=== PATIENT | female | born 1935 | race Caucasian/White ===

== ENCOUNTER 2016-10-13 17:02 | Emergency (ER) | payer OTHER, MEDICAID ==
[~2016-10-13] VITALS: Ht 170.1 cm; Wt 56.7 kg
[~2016-10-13 17:02] MED LIST: ADVAIR 100/501 E1 INH; AUGMENTIN 875 M1 TAB PO; BACTRIM 400 MG-1 TAB PO; BACTRIM DS 8001 TA1 PO; CIPRO500 MG PO; CIPROFLOXACIN500 MG PO; DEXILANT60 MG PO; PRILOSEC20 M2 PO; PROTONIX40 MG PO; PROVENTIL0.09 MG/A1 INH; SINGULAIR10 MG PO; SYMBICORT1 AE1 IH; SYNTHROID0.075 MG PO; ULTRAM50 MG PO; VICODIN 5/500 505 MG PO; ZOFRAN ODT4 MG SL
[2016-10-13] MEDS ORDERED: HYDR12.5C PO (17:33)
[2016-10-13] MEDS ORDERED: PREVACID30 M2 PO (17:33)
[2016-10-13] MEDS ORDERED: ANORO ELLIPTA1 POW IH (17:33)
[2016-10-13] MEDS ORDERED: PROAIR HFA8.5 GM INH (17:34)
[2016-10-13 20:00] VITALS: BP 138/80
== END 2016-10-13 20:19 | disposition short-term general hospital (02) ==
LOC: ED 17:02
DX: S72.001A Fracture of unspecified part of neck of right femur, initial encounter for closed fracture (principal); S42.291A Other displaced fracture of upper end of right humerus, initial encounter for closed fracture; Z79.899 Other long term (current) drug therapy; W18.39XA Other fall on same level, initial encounter; Y93.89 Activity, other specified; Y92.89 Other specified places as the place of occurrence of the external cause; Y99.9 Unspecified external cause status

== ENCOUNTER → 2017-08-13 | Outpatient (CLI) | payer OTHER ==
[~2017-08-13] MED LIST changes: +ANORO ELLIPTA1 POW IH; +HYDR12.5C PO; +PREVACID30 M2 PO; +PROAIR HFA8.5 GM INH
== END | disposition home or self-care (01) ==
LOC: RAD 08-11 10:17
DX: J44.9 Chronic obstructive pulmonary disease, unspecified (principal); J84.10 Pulmonary fibrosis, unspecified

== ENCOUNTER 2017-11-15 22:37 | Inpatient (IN) | payer OTHER, MEDICAID ==
[~2017-11-15] VITALS: Ht 162.5 cm; Wt 51.4 kg
--- NOTE | ~2017-11-15 | EKG ---
[place], [place] ELECTROCARDIOGRAM REPORT NAME: MINH FLORES UNIT #: [id number] ROOM: 425 DOCTOR: ERIC SANTILLAN MD BIRTHDATE: [birth year] DOS: 11/16/2017 DATE OF STUDY: 11/15/2017 TIME: 2309 hours. FINDINGS: 1. Sinus tachycardia at 105 beats per minute. 2. Flattened T waves in most chest leads. 3. An abnormal ECG. 4. No previous tracing is available for comparison. ERIC SANTILLAN MD CM:EKGRPT:ELECTROCARDIOGRAM REPORT [id number] ERIC SANTILLAN MD
--- NOTE | ~2017-11-15 | PR ---
[place], [place] PROGRESS NOTE NAME: MINH FLORES [facility] #: [id number] UNIT #: [id number] ROOM: [place] [address] DOCTOR: ESA FRANKEL MD BIRTHDATE: [birth year] DOS: 11/17/2017 CARDIOLOGY PROGRESS NOTE SUBJECTIVE: The patient was seen at her bedside in the intensive care unit today, 11/17/2017, for followup of an elevated troponin level. She is an 82-year-old woman who presented to [facility] on 11/15/2017 with malaise, fevers and chills along with nausea and vomiting. She denied any chest pain or dyspnea, although her daughter stated that she had complained of shortness of breath earlier in the week. Her urinalysis was positive for bacteria and blood cultures were positive for gram-negative rods. A diagnosis of urinary infection with gram-negative sepsis was made and she was admitted to the intensive care unit for management. Laboratory studies did show elevation of troponin, even though she did not have any chest pain. Her electrocardiogram showed no acute changes. She was monitored in the intensive care unit. She is improving and continues to deny chest pain today. Her troponin levels started at 0.506, but errol to a peak of 1.73 and then it fell to 1.34. PAST MEDICAL HISTORY: Positive for COPD, gastroesophageal reflux disease, hypothyroidism, but she does not have any history of previous heart disease. PHYSICAL EXAMINATION: VITAL SIGNS: Today her pulse is 75 and regular, blood pressure is 128/60. She has a temperature of 100.8. NECK: Supple. She has no jugular distention. Carotids are full. I heard no bruits. LUNGS: Respirations are unlabored. Chest is clear. HEART: Has a regular rhythm. She has a fourth heart sound, but no third heart sound or murmur. The PMI is not displaced. ABDOMEN: Soft and normally active. EXTREMITIES: Showed no edema. DIAGNOSTIC STUDIES: An echocardiogram done on 11/16/2017 showed normal left ventricular size with inferolateral hypokinesis, ejection fraction 55%, stage 1 diastolic relaxation abnormalities, mild aortic stenosis. IMPRESSION: 1. Non-ST elevation myocardial infarction. This is most likely a type 2 myocardial injury related to demand ischemia rather than an acute coronary event. 2. Abnormal echocardiogram, demonstrating wall motion abnormality. It is possible that the patient does have underlying coronary disease. 3. Mild aortic stenosis. PLAN: The patient is hemodynamically stable at this time. I think that she can be transferred out of the intensive care unit, but continued on medical therapy. I think that once her infections have improved, we can evaluate her further with risk stratifying myocardial perfusion stress test. Further recommendations [place], [place] PROGRESS NOTE NAME: MINH FLORES UNIT #: [id number] ROOM: [place] [address] DOCTOR: JOSTIN RIVAS,ESA BIRTHDATE: [birth year] will depend upon the results of her stress test. I thank the hospitalist physicians for asking our advice regarding her care. ESA FRANKEL MD CM:PNTRANS [id number] ESA FRANKEL MD 11/17/17 1534 interface
--- NOTE | ~2017-11-15 | PR ---
[place], [place] PROGRESS NOTE NAME: MINH FLORES [facility] #: [id number] UNIT #: [id number] ROOM: 425 DOCTOR: ESA FRANKEL MD BIRTHDATE: [birth year] DOS: 11/18/2017 SUBJECTIVE: The patient was seen at her bedside today, 11/18/2017, for followup of an elevated troponin level. She presented to [facility] 11/15/2017 with malase, fever and chills along with nausea and vomiting. She was found to have urinary tract infection with gram-negative sepsis. Both the urine and blood are growing E. coli. A followup blood culture after antibiotics were started is sterile thus far. After admission, she also developed pain in her right hip, which is status post repair. She states that she had the surgery done about a year ago. She has had persistent fevers since admission with a temperature as high as 103.4 early this morning. Currently, her temperature is down to 99.7. Sed rate today was elevated at 95. Troponin levels have been elevated. Her initial troponin was 0.506, but errol to a peak of 1.730 and is now down to 1.270. PHYSICAL EXAMINATION: VITAL SIGNS: Today, pulse is 92 and regular, blood pressure 107/83. She is currently febrile with a temperature of 99.7. NECK: Supple. She has no jugular distention. Carotids are full. LUNGS: Respirations are unlabored. CHEST: Clear. HEART: Has a regular rhythm. She has a grade II/ systolic ejection murmur along the left sternal border. There is a fourth heart sound, but no third heart sound. The PMI is not displaced. IMAGING: An echocardiogram done on 11/16/2017 showed normal left ventricular size with inferolateral hypokinesis and ejection fraction of 55%, stage 1 diastolic abnormalities and mild aortic stenosis. She has no Valle spots, splinter hemorrhages or scleral hemorrhages. IMPRESSION: 1. Non-ST elevation myocardial infarction. This is still most likely a type 2 myocardial injury related to demand ischemia rather than an acute coronary event. 2. Abnormal echocardiogram demonstrating wall motion abnormality. It is possible that the patient does have underlying coronary artery disease. 3. Mild aortic stenosis. 4. Gram-negative sepsis with Escherichia coli, most likely of urinary tract origin. PLAN: The patient is being evaluated by Infectious Disease and probably will be evaluated by Orthopedics as well. We will continue to observe her clinically. If there is a question about the presence of endocarditis, we can arrange for a RAN later this week, but for now, antibiotic therapy appears to be the most appropriate management tool. We thank the hospitalist physicians for asking our advice Regarding the patient's care. [place], [place] PROGRESS NOTE NAME: SANDRA,MINH Sarah UNIT #: [id number] ROOM: 425 DOCTOR: ESA FRANKEL MD BIRTHDATE: [birth year] ESA FRANKEL MD CM:PNTRANS [id number] ESA FRANKEL MD 11/18/171914 interface
--- NOTE | ~2017-11-15 | PR ---
[place], [place] PROGRESS NOTE NAME: MINH FLORES [facility] #: [id number] UNIT #: [id number] ROOM: 425 DOCTOR: ESA FRANKEL MD BIRTHDATE: [birth year] DOS: 11/19/2017 SUBJECTIVE: The patient was seen at her bedside today 11/19/2017 for followup of a type 2 myocardial injury. She is an 82-year-old woman who presented to the hospital with Gram-negative sepsis of urinary tract origin. During the hospitalization, she did have an elevation in troponin to a peak of 1.730. This may have been due to a type 2 myocardial injury or underlying coronary disease, but the patient never had any chest pain or diagnostic electrocardiographic changes. Blood cultures were positive for E. coli and have been sterile since then. She did develop significant right hip pain, but this is improving. Sed rate was elevated at 95 on 11/18/2017, white count was elevated as high as 17,200, but is now down to 10,000 with antibiotic therapy. Today, the patient states that she is feeling better. She is sitting beside her bed and ate a reasonable breakfast. She does, however, appear breathless. PHYSICAL EXAMINATION: VITAL SIGNS: Her pulse is 85 and regular, blood pressure is 136/68. She has a fever of 99.1. HEENT: Normocephalic and atraumatic. Extraocular muscles are intact. Sclerae are clear. Pupils are equal, round and react to light. The oral mucosa is moist. Tongue is midline. NECK: Supple. She has no jugular distention. Carotids are full. LUNGS: Respirations are unlabored. Her chest is clear to auscultation and percussion. She has no presacral edema or chest wall tenderness. HEART: Has a regular rhythm. She has a fourth heart sound. She has a grade 2-3/6 systolic ejection murmur along the left sternal border, but no diastolic murmurs. PMI is not displaced. ABDOMEN: Soft and normally active. EXTREMITIES: Showed no edema. LABORATORY DATA: Her initial hemoglobin on admission was 9.1, it is falling gradually during this hospitalization and today is 7.0. White count was as high as 17,200 and is now down to 10,000, platelet count is 351,000. Sodium 137, potassium 3.6, BUN 6, creatinine 0.26. IMPRESSION: 1. Non-ST elevation myocardial infarction, most likely this was a type 2 myocardial injury related to demand ischemia rather than acute coronary event. 2. Abnormal echocardiogram demonstrating a wall motion abnormality. The patient may have underlying coronary process as well. 3. Mild aortic stenosis. 4. Gram-negative sepsis with Escherichia coli, most likely of urinary tract origin. 5. Right hip pain with history of right hip surgery about 1 year ago and hardware in place. Her hemoglobin of 7 is quite low for someone who recently had a cardiac injury. The patient does seem breathless at rest. I would suggest that she be given at least 1 unit of packed cells to get her hemoglobin above 8 and hopefully close [place], [place] PROGRESS NOTE NAME: MINH FLORES UNIT #: [id number] ROOM: [facility] DOCTOR: ESA FRANKEL MD BIRTHDATE: [birth year] to 9. We will continue to monitor her with her other physicians. Once she is fully stabilized, further cardiac assessment with a pharmacologic stress test will be planned. I thank the hospitalist physicians for asking our advice regarding her care. ESA FRANKEL MD CM:PNTRANS [id number] ESA FRANKEL MD 11/19/17 1015 interface
[~2017-11-15 22:37] MED LIST changes: +ANORO ELLIPTA1 EACH INH; -ANORO ELLIPTA1 POW IH
[2017-11-15] MEDS ORDERED: PERCOCET 5-3251 EACH PO (22:40)
[2017-11-15 22:53] VITALS: BP 134/69
[2017-11-15 23:10] LABS: BILIRUBIN NEGATIVE (NEGATIVE); BLOOD TRACE-INTACT (NEGATIVE); CLARITY SL CLOUDY (CLEAR); COLOR YELLOW (YELLOW); GLUCOSE NEGATIVE (NEGATIVE); KETONE NEGATIVE (NEGATIVE); LEUKO ESTERASE 1+ (NEGATIVE); NITRITE POSITIVE (NEGATIVE); UROBILINOGEN 0.2 E.U./dl (0.2-1.0)
[2017-11-15 23:14] LABS: RBC 0-2 rbc/hpf (0-2); WBC TNTC wbc/hpf (0-5)
[2017-11-15 23:15] VITALS: BP 117/75
[2017-11-15 23:15] LABS: BACTERIA 4+
[2017-11-15 23:29] LABS: BASO # 0.1 10*3/uL (0.0-0.1); BASO % 0.5 % (0.0-1.0); EOS # 0.1 10*3/uL (0.0-0.4); EOS % 0.5 % (1.0-4.0); HEMATOCRIT 28.6 % (37.0-47.0); HEMOGLOBIN 9.1 g/dl (12.0-16.0); LYMPH # 0.8 10*3/uL (1.3-4.4); LYMPH % 4.6 % (27.0-41.0); MEAN CELL VOLUME 98.6 fl (81.0-99.0); MEAN CORPUSCULAR HGB 31.4 pg (27.0-31.0); MEAN CORPUSCULAR HGB CONC 31.8 g/dl (33.0-37.0); MEAN PLATELET VOLUME 10.5 fl (9.6-12.3); MONO # 0.7 10*3/uL (0.1-1.0); NEUT # 14.8 10*3/uL (2.3-7.9); NEUT % 89.9 % (47.0-73.0); PLATELET COUNT AUTOMATED 325 10*3/uL (130-400); RED CELL DISTRI WIDTH 12.7 % (0-14.5); WHITE BLOOD COUNT 16.4 10*3/uL (4.8-10.8)
[2017-11-15 23:39] VITALS: BP 138/76
[2017-11-15 23:39] LABS: ACT PARTIAL THROMBO TIME 25.5 SECONDS (20.8-31.5); INTERNATIONAL NORM RATIO 1.2 (2.0-3.5)
[2017-11-15 23:47] LABS: ALBUMIN 2.9 gm/dl (3.1-4.5); ALKALINE PHOSPHATASE 95 U/L (45-117); BUN 14 mg/dl (7-24); CHLORIDE 105 mmol/L (98-107); CKMB 0.9 ng/ml (0.5-3.6); CPK 55 U/L (26-192); CREATININE 0.42 mg/dL (0.55-1.02); LIPASE 87 U/L (73-393); POTASSIUM 3.5 mmol/L (3.5-5.1); SGOT/AST 20 IU/L (3-35); SGPT/ALT 15 U/L (12-78); SODIUM 138 mmol/L (136-145)
[2017-11-15 23:49] LABS: TROPONIN I 0.506 ng/ml (<0.045)
[2017-11-16] VITALS (7 sets, daily range): BP systolic 100–122; BP diastolic 49–67
[2017-11-16] MEDS ORDERED: GOOD NEIGHBOR L10 MG PO (01:43)
[2017-11-16] MEDS ORDERED: MONTELUKAST SOD10 MG PO (01:45)
[2017-11-16 09:41] LABS: HEMATOCRIT 28.7 % (37.0-47.0); HEMOGLOBIN 8.9 g/dl (12.0-16.0); MEAN CELL VOLUME 100.7 fl (81.0-99.0); MEAN CORPUSCULAR HGB 31.2 pg (27.0-31.0); MEAN PLATELET VOLUME 10.7 fl (9.6-12.3); PLATELET COUNT AUTOMATED 322 10*3/uL (130-400); RED BLOOD COUNT 2.85 10*6/uL (4.10-5.10); WHITE BLOOD COUNT 17.2 10*3/uL (4.8-10.8)
[2017-11-16 10:04] LABS: BUN 12 mg/dl (7-24); CHLORIDE 107 mmol/L (98-107); POTASSIUM 3.7 mmol/L (3.5-5.1); SODIUM 138 mmol/L (136-145)
[2017-11-16 10:28] LABS: BASOPHILS 1 % (0-1); PLATELET SUFFICIENCY NORMAL (NORMAL); POLYCHROMASIA SLIGHT; TOTAL CELLS COUNTED 100 #CELLS
[2017-11-17] VITALS (7 sets, daily range): BP systolic 112–149; BP diastolic 52–93
[2017-11-17 05:19] LABS: BASO # 0.1 10*3/uL (0.0-0.1); BASO % 0.7 % (0.0-1.0); EOS # 0.1 10*3/uL (0.0-0.4); EOS % 0.9 % (1.0-4.0); HEMATOCRIT 25.1 % (37.0-47.0); HEMOGLOBIN 7.7 g/dl (12.0-16.0); LYMPH # 1.5 10*3/uL (1.3-4.4); LYMPH % 14.9 % (27.0-41.0); MEAN CELL VOLUME 101.6 fl (81.0-99.0); MEAN CORPUSCULAR HGB 31.2 pg (27.0-31.0); MEAN CORPUSCULAR HGB CONC 30.7 g/dl (33.0-37.0); MEAN PLATELET VOLUME 11.1 fl (9.6-12.3); MONO # 1.3 10*3/uL (0.1-1.0); MONO % 13.1 % (3.0-9.0); NEUT # 7.1 10*3/uL (2.3-7.9); PLATELET COUNT AUTOMATED 316 10*3/uL (130-400); RED BLOOD COUNT 2.47 10*6/uL (4.10-5.10); RED CELL DISTRI WIDTH 13.2 % (0-14.5); WHITE BLOOD COUNT 10.1 10*3/uL (4.8-10.8)
[2017-11-17 06:21] LABS: ALBUMIN 2.3 gm/dl (3.1-4.5); ALKALINE PHOSPHATASE 73 U/L (45-117); BUN 11 mg/dl (7-24); CHLORIDE 110 mmol/L (98-107); CHOLESTEROL 82 mg/dL (<200); CREATININE 0.36 mg/dL (0.55-1.02); FREE T4 1.12 ng/dl (0.76-1.46); HDL CHOLESTEROL 26 mg/dl (40-60); LDL CHOLESTEROL 40 mg/dL (9-159); PHOSPHOROUS 2.1 mg/dL (2.5-4.9); POTASSIUM 3.1 mmol/L (3.5-5.1); SGOT/AST 24 IU/L (3-35); SGPT/ALT 14 U/L (12-78); SODIUM 141 mmol/L (136-145); TOTAL PROTEIN 5.4 gm/dL (6.4-8.2); TRIGLYCERIDES 81 mg/dl (<150); VLDL CHOLESTEROL 16 mg/dL (6-40)
[2017-11-17 06:56] LABS: VITAMIN D, 25-HYDROXY 24.7 ng/mL (30-100)
[2017-11-18] VITALS (7 sets, daily range): BP systolic 107–143; BP diastolic 62–83
[2017-11-18 07:48] LABS: BASO # 0.1 10*3/uL (0.0-0.1); BASO % 0.5 % (0.0-1.0); EOS % 0.3 % (1.0-4.0); HEMATOCRIT 24.5 % (37.0-47.0); HEMOGLOBIN 7.6 g/dl (12.0-16.0); LYMPH # 1.3 10*3/uL (1.3-4.4); LYMPH % 10.5 % (27.0-41.0); MEAN CELL VOLUME 98.8 fl (81.0-99.0); MEAN CORPUSCULAR HGB 30.6 pg (27.0-31.0); MONO # 1.5 10*3/uL (0.1-1.0); MONO % 12.8 % (3.0-9.0); NEUT # 8.9 10*3/uL (2.3-7.9); NEUT % 75.4 % (47.0-73.0); PLATELET COUNT AUTOMATED 323 10*3/uL (130-400); RED BLOOD COUNT 2.48 10*6/uL (4.10-5.10); WHITE BLOOD COUNT 11.9 10*3/uL (4.8-10.8)
[2017-11-18 08:26] LABS: BUN 7 mg/dl (7-24); CHLORIDE 105 mmol/L (98-107); CREATININE 0.35 mg/dL (0.55-1.02); PHOSPHOROUS 2.3 mg/dL (2.5-4.9); POTASSIUM 3.4 mmol/L (3.5-5.1); SODIUM 138 mmol/L (136-145)
[2017-11-19] VITALS (12 sets, daily range): BP systolic 114–144; BP diastolic 60–72
[2017-11-19 06:45] LABS: BASO # 0.1 10*3/uL (0.0-0.1); BASO % 0.5 % (0.0-1.0); EOS # 0.3 10*3/uL (0.0-0.4); EOS % 2.9 % (1.0-4.0); HEMATOCRIT 22.2 % (37.0-47.0); LYMPH # 1.8 10*3/uL (1.3-4.4); LYMPH % 18.5 % (27.0-41.0); MEAN CELL VOLUME 98.2 fl (81.0-99.0); MEAN CORPUSCULAR HGB CONC 31.5 g/dl (33.0-37.0); MEAN PLATELET VOLUME 10.8 fl (9.6-12.3); MONO # 1.3 10*3/uL (0.1-1.0); MONO % 13.1 % (3.0-9.0); NEUT # 6.4 10*3/uL (2.3-7.9); NEUT % 64.5 % (47.0-73.0); PLATELET COUNT AUTOMATED 351 10*3/uL (130-400); RED BLOOD COUNT 2.26 10*6/uL (4.10-5.10)
[2017-11-19 07:05] LABS: BUN 6 mg/dl (7-24); CHLORIDE 103 mmol/L (98-107); CREATININE 0.26 mg/dL (0.55-1.02); PHOSPHOROUS 1.9 mg/dL (2.5-4.9); POTASSIUM 3.6 mmol/L (3.5-5.1); SODIUM 137 mmol/L (136-145)
[2017-11-20] VITALS: BP 136/67
[2017-11-20 06:47] LABS: BASO # 0.1 10*3/uL (0.0-0.1); BASO % 1.2 % (0.0-1.0); EOS # 0.5 10*3/uL (0.0-0.4); EOS % 5.6 % (1.0-4.0); HEMATOCRIT 26.1 % (37.0-47.0); HEMOGLOBIN 8.6 g/dl (12.0-16.0); LYMPH # 2.2 10*3/uL (1.3-4.4); LYMPH % 25.6 % (27.0-41.0); MEAN CORPUSCULAR HGB 31.2 pg (27.0-31.0); MEAN PLATELET VOLUME 10.4 fl (9.6-12.3); MONO % 11.3 % (3.0-9.0); NEUT # 4.8 10*3/uL (2.3-7.9); NEUT % 55.8 % (47.0-73.0); PLATELET COUNT AUTOMATED 362 10*3/uL (130-400); RED BLOOD COUNT 2.76 10*6/uL (4.10-5.10); RED CELL DISTRI WIDTH 14.4 % (0-14.5); WHITE BLOOD COUNT 8.6 10*3/uL (4.8-10.8)
[2017-11-20 06:51] LABS: MEAN CELL VOLUME 94.6 fl (81.0-99.0)
[2017-11-20 07:18] LABS: BUN 5 mg/dl (7-24); CHLORIDE 104 mmol/L (98-107); CREATININE 0.31 mg/dL (0.55-1.02); POTASSIUM 3.4 mmol/L (3.5-5.1); SODIUM 141 mmol/L (136-145)
[2017-11-20 08:00] VITALS: BP 145/61
[2017-11-20] MEDS ORDERED: WALKER (09:26)
[2017-11-20 12:00] VITALS: BP 131/53
[2017-11-20 16:00] VITALS: BP 127/53
[2017-11-20] MEDS ORDERED: KEFLEX 500 MG E2 CAP PO (16:43)
[2017-11-20] MEDS ORDERED: METOPROLOL SUCC25 M2 PO (16:43)
[2017-11-20] MEDS ORDERED: ATORVASTATIN CA40 M1 PO (16:43)
[2017-11-20] MEDS ORDERED: ASPIRIN ADULT L81 M2 PO (16:43)
[2017-11-20] MEDS ORDERED: VITAMIN D-32000 UNIT PO (16:43)
== END 2017-11-20 18:07 | disposition home or self-care (01) | DRG 871 ==
LOC: ED 22:37 → ICCU 11-16 00:33 → 4E 11-16 00:33 → EDHOLD 11-16 00:33 → 5E 11-16 00:48 → ICCU 11-16 13:46 → 4E 11-17 16:37
PROVIDERS: Emergency Medicine; Family Medicine; Internal Medicine; Internal Medicine Cardiovascular Disease; Internal Medicine Hospice and Palliative Medicine
PROC: 30233N1 Transfusion of Nonautologous Red Blood Cells into Peripheral Vein, Percutaneous Approach (ICD-10-PCS; principal; 2017-11-19)
DX: A41.50 Gram-negative sepsis, unspecified (principal); I21.4 Non-ST elevation (NSTEMI) myocardial infarction; J18.1 Lobar pneumonia, unspecified organism; E44.0 Moderate protein-calorie malnutrition; D64.9 Anemia, unspecified; J44.0 Chronic obstructive pulmonary disease with (acute) lower respiratory infection; Z68.1 Body mass index [BMI] 19.9 or less, adult; N12 Tubulo-interstitial nephritis, not specified as acute or chronic; A41.51 Sepsis due to Escherichia coli [E. coli]; R65.20 Severe sepsis without septic shock; R31.9 Hematuria, unspecified; D72.810 Lymphocytopenia; K21.9 Gastro-esophageal reflux disease without esophagitis; E03.9 Hypothyroidism, unspecified; H91.91 Unspecified hearing loss, right ear; I35.0 Nonrheumatic aortic (valve) stenosis; R26.81 Unsteadiness on feet; Z79.899 Other long term (current) drug therapy; Z87.81 Personal history of (healed) traumatic fracture; Z82.49 Family history of ischemic heart disease and other diseases of the circulatory system; Z84.89 Family history of other specified conditions; Z98.42 Cataract extraction status, left eye; Z98.41 Cataract extraction status, right eye; Z90.49 Acquired absence of other specified parts of digestive tract

== ENCOUNTER → 2017-12-12 | Outpatient (CLI) | payer OTHER, MEDICAID ==
[~2017-12-12] MED LIST changes: +ASPIRIN ADULT L81 M2 PO; +ATORVASTATIN CA40 M1 PO; +GOOD NEIGHBOR L10 MG PO; +KEFLEX 500 MG E2 CAP PO; +METOPROLOL SUCC25 M2 PO; +MONTELUKAST SOD10 MG PO; +PERCOCET 5-3251 EACH PO; +VITAMIN D-32000 UNIT PO; +WALKER
--- NOTE | ~2017-12-12 | ST ---
[place], [place] EXERCISE STRESS TEST REPORT NAME: MINH FLORES UNIT #: [id number] ROOM: DOCTOR: KHANH PIPER MD BIRTHDATE: [birth year] DOS: 12/12/2017 LEXISCAN STRESS EKG REPORT REFERRING PHYSICIAN: Dr. Jacinto. INDICATION: Left bundle branch block. The patient underwent standard protocol Lexiscan stress EKG. Interestingly, patient's EKG is normal sinus rhythm with no evidence of left bundle branch block today, with the baseline heart rate of 77 beats per minute, blood pressure of 122/72. The patient's peak heart was 117 with a blood pressure 130/80. The patient had no chest pain, no EKG changes, no arrhythmias. SUMMARY OF FINDINGS: Unremarkable Lexiscan stress EKG. Please see separate report for perfusion scan imaging results. KHANH PIPER MD CM:STRESS:EXERCISE STRESS TEST REPORT [id number] KHANH PIPER MD
== END | disposition home or self-care (01) ==
LOC: CARD 02:11
DX: I44.7 Left bundle-branch block, unspecified (principal); R94.31 Abnormal electrocardiogram [ECG] [EKG]; R53.81 Other malaise

== ENCOUNTER → 2017-12-25 | Outpatient (CLI) | payer OTHER | END | disposition home or self-care (01) | LOC: RAD 11:10 | DX: J44.9 Chronic obstructive pulmonary disease, unspecified (principal); M54.9 Dorsalgia, unspecified ==

== ENCOUNTER 2018-11-11 17:49 | Inpatient (IN) | payer OTHER, MEDICAID ==
[~2018-11-11] VITALS: Ht 162.5 cm; Wt 40.2 kg
--- NOTE | ~2018-11-11 | EKG ---
[place], [place] ELECTROCARDIOGRAM REPORT NAME: MINH FLORES UNIT #: [id number] ROOM: 406 DOCTOR: DEVAN DRAFT REPORT BIRTHDATE: [birth year] [facility] Test Date: 2018-11-12 Test Time: 00:16:48 Pat Name: MINH FLORES Department: Room: [facility] Gender: F Manager Benefit: SS RESP : 1935 Requested By: STEPHANIE PARK Order Number: [id number] Reading MD: Kareem Whitmore MD Measurements Intervals [place] Rate: 103 P: 80 FL: 174 QRS: 29 QRSD: 92 T: 35 QT: 364 QTc: 477 Interpretive Statements Sinus tachycardia Atrial premature complexes Probable LVH with secondary repol abnrm Baseline wander in lead(s) V3,V4,V5 Electronically Signed On 11-14-2018 8:10:06 PDT by Kareem Whitmore MD CM:EKGRPT:ELECTROCARDIOGRAM REPORT [id number] STEPHANIE HARTMAN DRAFT REPORT STEPHANIE PARK MD
--- NOTE | ~2018-11-11 | EKG ---
[place], [place] ELECTROCARDIOGRAM REPORT NAME: MINH FLORES UNIT #: [id number] ROOM: 406 DOCTOR: DEVAN DRAFT REPORT BIRTHDATE: [birth year] [facility] Test Date: 2018-11-11 Test Time: 18:37:19 Pat Name: MINH FLORES Department: Room: 406 Gender: F Harbor Boat Pilot: Zabrina King : 1935 Requested By: STEPHANIE PARK Order Number: [id number] Reading MD: Kareem Whitmore MD Measurements Intervals [place] Rate: 95 P: 53 VA: 150 QRS: 3 QRSD: 94 T: -1 QT: 423 QTc: 532 Interpretive Statements Sinus rhythm Atrial premature complexes LVH with secondary repolarization abnormality Prolonged QT interval No previous ECG available for comparison Electronically Signed On 11-14-2018 8:09:49 PDT by Kareem Whitmore MD CM:EKGRPT:ELECTROCARDIOGRAM REPORT [id number] STEPHANIE HARTMAN DRAFT REPORT STEPHANIE PARK MD
--- NOTE | ~2018-11-11 | EKG ---
[place], [place] ELECTROCARDIOGRAM REPORT NAME: MINH FLORES UNIT #: [id number] ROOM: 406 DOCTOR: DEVAN DRAFT REPORT BIRTHDATE: [birth year] [facility] Test Date: 2018-11-11 Test Time: 21:07:29 Pat Name: MINH FLORES Department: Room: 406 Gender: F Factory Representative: Zabrina King : 1935 Requested By: STEPHANIE PARK Order Number: [id number] Reading MD: Kareem Whitmore MD Measurements Intervals [place] Rate: 87 P: 78 SD: 145 QRS: 19 QRSD: 102 T: -16 QT: 377 QTc: 454 Interpretive Statements Sinus rhythm Multiple premature complexes, vent \T\ supraven Probable left atrial enlargement LVH with secondary repolarization abnormality No previous ECG available for comparison Electronically Signed On 11-14-2018 8:09:57 PDT by Kareem Whitmore MD CM:EKGRPT:ELECTROCARDIOGRAM REPORT [id number] [phone] STEPHANIE HARTMAN DRAFT REPORT STEPHANIE PARK MD
[2018-11-11 17:50] VITALS: BP 130/100
[2018-11-11 18:30] VITALS: BP 132/96
[2018-11-11 18:30] LABS: HEMATOCRIT 31.7 % (37.0-47.0); HEMOGLOBIN 10.3 g/dl (12.0-16.0); MEAN CELL VOLUME 99.4 fl (81.0-99.0); MEAN CORPUSCULAR HGB 32.3 pg (27.0-31.0); MEAN CORPUSCULAR HGB CONC 32.5 g/dl (33.0-37.0); MEAN PLATELET VOLUME 10.9 fl (9.6-12.3); PLATELET COUNT AUTOMATED 276 10*3/uL (130-400); RED BLOOD COUNT 3.19 10*6/uL (4.10-5.10); RED CELL DISTRI WIDTH 13.5 % (0-14.5)
[2018-11-11 18:47] LABS: ALBUMIN 3.7 gm/dl (3.1-4.5); ALKALINE PHOSPHATASE 112 U/L (45-117); BUN 17 mg/dl (7-24); CHLORIDE 102 mmol/L (98-107); SGOT/AST 31 IU/L (3-35); SGPT/ALT 45 U/L (12-78); SODIUM 135 mmol/L (136-145); TOTAL PROTEIN 7.4 gm/dL (6.4-8.2)
[2018-11-11 18:48] LABS: TROPONIN I < 0.015 ng/ml (<0.045)
[2018-11-11 18:52] LABS: TOTAL CELLS COUNTED 100 #CELLS
[2018-11-11 18:53] LABS: OVALOCYTES FEW; PLATELET SUFFICIENCY NORMAL (NORMAL)
[2018-11-11 19:03] VITALS: BP 133/97
[2018-11-11 19:22] LABS: INTERNATIONAL NORM RATIO 1.1 (2.0-3.5)
[2018-11-11 20:10] VITALS: BP 152/85
--- NOTE | 2018-11-11 20:10 | NUR ---
A 83, admitted to , under the services of DEIDRE Das DO with a diagnosis of COPD. Chief complaint is BACK PAIN. Patient arrived via ambulatory from ER. Monitor applied. Initial assessment completed. Vital signs taken and recorded. DEIDRE DAS DO notified of admission to the unit. Orders received. See assessment for past medical history, medications and allergies. Patient and/or family oriented to unit. [facility]. Clothing/patient valuable form completed. KEMAR BARNES
[2018-11-12] VITALS: BP 120/56
[2018-11-12 03:43] LABS: HEMATOCRIT 31.2 % (37.0-47.0); MEAN CELL VOLUME 98.7 fl (81.0-99.0); MEAN CORPUSCULAR HGB 31.6 pg (27.0-31.0); MEAN CORPUSCULAR HGB CONC 32.1 g/dl (33.0-37.0); MEAN PLATELET VOLUME 11.2 fl (9.6-12.3); PLATELET COUNT AUTOMATED 278 10*3/uL (130-400); RED BLOOD COUNT 3.16 10*6/uL (4.10-5.10); RED CELL DISTRI WIDTH 13.5 % (0-14.5); WHITE BLOOD COUNT 16.6 10*3/uL (4.8-10.8)
[2018-11-12 04:05] LABS: PLATELET SUFFICIENCY NORMAL (NORMAL); TOTAL CELLS COUNTED 100 #CELLS
[2018-11-12 04:14] LABS: ALBUMIN 3.3 gm/dl (3.1-4.5); ALKALINE PHOSPHATASE 102 U/L (45-117); BUN 14 mg/dl (7-24); CHLORIDE 103 mmol/L (98-107); CHOLESTEROL 97 mg/dL (<200); CREATININE 0.43 mg/dL (0.55-1.02); HDL CHOLESTEROL 65 mg/dl (40-60); LDL CHOLESTEROL 26 mg/dL (9-159); PHOSPHOROUS 3.1 mg/dL (2.5-4.9); POTASSIUM 3.9 mmol/L (3.5-5.1); SGOT/AST 26 IU/L (3-35); SGPT/ALT 40 U/L (12-78); SODIUM 136 mmol/L (136-145); TOTAL PROTEIN 7.1 gm/dL (6.4-8.2); TRIGLYCERIDES 31 mg/dl (<150); VLDL CHOLESTEROL 6 mg/dL (6-40)
[2018-11-12 04:19] LABS: THYROID STIM HORMONE (HS) 0.322 uIU/ml (0.358-4.75)
[2018-11-12 06:46] LABS: VITAMIN D, 25-HYDROXY 24.7 ng/mL (30-100)
--- NOTE | 2018-11-12 07:39 | NUR ---
Shift chart check completed.
[2018-11-12 08:00] VITALS: BP 106/42
--- NOTE | 2018-11-12 09:00 | NUR ---
Lead Oracle Developer in to talk to patient. Patient states lives at home with . There are few steps in the home. Physician: javier sheikh [facility]acy[facility] Home health services: none Patient's level of ADLs: INDEPENDENT Patient has working utilities: all working DME: walker Follow-up physician's appointment after d/c: will be made by hospitalist nurse director upon discharge Does patient want to access PORTAL?: no Discharge plan discussed with patient, patient lives at home with , she is independent in adls and ambulation, patient uses a walker at home, she states she will be going home when able, discussed with her VNA and she declines any services at this time case management will follow. ORLIN RASMUSSEN
[2018-11-12 11:13] LABS: BILIRUBIN NEGATIVE (NEGATIVE); BLOOD TRACE-INTACT (NEGATIVE); CLARITY SL CLOUDY (CLEAR); COLOR YELLOW (YELLOW); GLUCOSE NEGATIVE (NEGATIVE); KETONE NEGATIVE (NEGATIVE); LEUKO ESTERASE NEGATIVE (NEGATIVE); NITRITE NEGATIVE (NEGATIVE)
[2018-11-12 11:34] LABS: BACTERIA 1+; MUCOUS 2+
[2018-11-12 12:00] VITALS: BP 130/81
[2018-11-12 16:00] VITALS: BP 116/76
--- NOTE | 2018-11-12 16:31 | NUR ---
PHYSICAL THERAPY Nursing screen received. Chart review complete. Recommend normal daily mobility with nursing prn. If difficulties with mobilty arise, please order PT when medically appropriate. Thank you. Cathy Griffith,PT
[2018-11-12 20:00] VITALS: BP 126/84
[2018-11-13] VITALS: BP 125/78
[2018-11-13 04:58] LABS: BASO % 0.1 % (0.0-1.0); HEMATOCRIT 31.7 % (37.0-47.0); HEMOGLOBIN 9.9 g/dl (12.0-16.0); LYMPH # 0.9 10*3/uL (1.3-4.4); LYMPH % 8.1 % (27.0-41.0); MEAN CELL VOLUME 99.1 fl (81.0-99.0); MEAN CORPUSCULAR HGB 30.9 pg (27.0-31.0); MEAN CORPUSCULAR HGB CONC 31.2 g/dl (33.0-37.0); MONO # 0.4 10*3/uL (0.1-1.0); MONO % 3.4 % (3.0-9.0); NEUT # 10.2 10*3/uL (2.3-7.9); PLATELET COUNT AUTOMATED 283 10*3/uL (130-400); RED CELL DISTRI WIDTH 13.6 % (0-14.5); WHITE BLOOD COUNT 11.6 10*3/uL (4.8-10.8)
[2018-11-13 05:11] LABS: BUN 19 mg/dl (7-24); CHLORIDE 104 mmol/L (98-107); CREATININE 0.55 mg/dL (0.55-1.02); POTASSIUM 4.2 mmol/L (3.5-5.1); SODIUM 138 mmol/L (136-145)
[2018-11-13 08:00] VITALS: BP 109/80
--- NOTE | 2018-11-13 08:27 | NUR ---
SITTING UP IN BED. RESP-EASY AND REGULAR. C/O CONSTIPATION. MEDICATED WITH DUCOLAX PO PER PRN ORDER, SEE EMAR. CALL LIGHT IN REACH. DENIES ANY PAIN. SEE SHIFT ASSESSMENT.
--- NOTE | 2018-11-13 09:00 | NUR ---
case management visits with patient, patient denies any home needs, case management will follow
--- NOTE | 2018-11-13 10:00 | NUR ---
TOLERATED ROUTIEN MED WITH NO PROBLEM. NO C/O AT THIS TIME. CALL LIGHT IN REACH.
[2018-11-13] MEDS ORDERED: VITAMIN D31000 UNI1 PO (11:28)
[2018-11-13] MEDS ORDERED: VIBRAMYCIN100 MG PO (11:28)
[2018-11-13] MEDS ORDERED: PREDNISONE10 MG PO (11:28)
[2018-11-13 12:00] VITALS: BP 130/63
--- NOTE | 2018-11-13 13:10 | NUR ---
Discharge instructions reviewed with patient/family. Patient receptive and verbalizes understanding. Follow-up care arranged. Written instructions given to patient/family. HEPLOCK REMOVED 2X2 APPLIED. PT ESCORTED VIA WHEELCHAIR FOR DISCHARGE. JESS DWYER
--- NOTE | 2018-11-13 13:12 | NUR ---
Nursing screen received and chart review completed. Patient to be discharged today. Ana Schaeffer OTR/L
== END 2018-11-13 13:10 | disposition home or self-care (01) | DRG 871 ==
LOC: ED 17:49 → 4E 19:02 → EDHOLD 19:02 → 4E 19:28
PROVIDERS: Emergency Medicine; Internal Medicine; ADMIT Internal Medicine
DX: A41.9 Sepsis, unspecified organism (principal); J96.00 Acute respiratory failure, unspecified whether with hypoxia or hypercapnia; J18.9 Pneumonia, unspecified organism; E87.1 Hypo-osmolality and hyponatremia; J44.1 Chronic obstructive pulmonary disease with (acute) exacerbation; J44.0 Chronic obstructive pulmonary disease with (acute) lower respiratory infection; I24.9 Acute ischemic heart disease, unspecified; Z68.1 Body mass index [BMI] 19.9 or less, adult; E03.9 Hypothyroidism, unspecified; R63.6 Underweight; D53.9 Nutritional anemia, unspecified; R07.89 Other chest pain; K21.9 Gastro-esophageal reflux disease without esophagitis; Z87.440 Personal history of urinary (tract) infections; I25.2 Old myocardial infarction; Z90.49 Acquired absence of other specified parts of digestive tract; Z98.42 Cataract extraction status, left eye; Z98.41 Cataract extraction status, right eye; Z82.49 Family history of ischemic heart disease and other diseases of the circulatory system; Z83.1 Family history of other infectious and parasitic diseases; Z79.82 Long term (current) use of aspirin; Z79.899 Other long term (current) drug therapy

== ENCOUNTER 2019-08-31 11:38 | Emergency (ER) | payer OTHER, MEDICAID ==
[~2019-08-31] VITALS: Ht 165.1 cm; Wt 36.3 kg
[~2019-08-31 11:38] MED LIST changes: +PREDNISONE10 MG PO; +VIBRAMYCIN100 MG PO; +VITAMIN D31000 UNI1 PO
[2019-08-31 11:42] VITALS: BP 158/75
[2019-08-31 12:28] LABS: BASO # 0.1 10*3/uL (0.0-0.1); BASO % 1.4 % (0.0-1.0); EOS # 0.2 10*3/uL (0.0-0.4); EOS % 2.3 % (1.0-4.0); HEMATOCRIT 36.5 % (37.0-47.0); HEMOGLOBIN 11.2 g/dl (12.0-16.0); LYMPH # 1.9 10*3/uL (1.3-4.4); LYMPH % 28.4 % (27.0-41.0); MEAN CELL VOLUME 100.3 fl (81.0-99.0); MEAN CORPUSCULAR HGB 30.8 pg (27.0-31.0); MEAN CORPUSCULAR HGB CONC 30.7 g/dl (33.0-37.0); MEAN PLATELET VOLUME 11.3 fl (9.6-12.3); MONO # 0.8 10*3/uL (0.1-1.0); MONO % 12.1 % (3.0-9.0); NEUT # 3.7 10*3/uL (2.3-7.9); NEUT % 55.3 % (47.0-73.0); PLATELET COUNT AUTOMATED 274 10*3/uL (130-400); RED BLOOD COUNT 3.64 10*6/uL (4.10-5.10); RED CELL DISTRI WIDTH 13.9 % (0-14.5); WHITE BLOOD COUNT 6.6 10*3/uL (4.8-10.8)
[2019-08-31 12:38] LABS: BILIRUBIN NEGATIVE (NEGATIVE); CLARITY SL CLOUDY (CLEAR); COLOR YELLOW (YELLOW); GLUCOSE NEGATIVE (NEGATIVE); KETONE NEGATIVE (NEGATIVE); SPECIFIC GRAVITY 1.015 (1.005-1.030)
[2019-08-31 12:39] LABS: BLOOD TRACE-INTACT (NEGATIVE); LEUKO ESTERASE 1+ (NEGATIVE); NITRITE NEGATIVE (NEGATIVE); PH 6.5 (5.0-9.0); UROBILINOGEN 0.2 E.U./dl (0.2-1.0)
[2019-08-31 12:47] LABS: ALBUMIN 3.8 gm/dl (3.1-4.5); ALKALINE PHOSPHATASE 125 U/L (45-117); BUN 15 mg/dl (7-24); CHLORIDE 104 mmol/L (98-107); CREATININE 0.54 mg/dL (0.55-1.02); POTASSIUM 4.2 mmol/L (3.5-5.1); SGOT/AST 28 IU/L (3-35); SGPT/ALT 32 U/L (12-78); SODIUM 138 mmol/L (136-145); TOTAL PROTEIN 7.7 gm/dL (6.4-8.2)
[2019-08-31 12:52] LABS: BACTERIA 4+; WBC 51-100 wbc/hpf (0-5)
[2019-08-31] MEDS ORDERED: NORCO 5-325 TA1 EACH PO (14:11)
[2019-08-31] MEDS ORDERED: AMINOPHYLLIN200 MG PO (14:11)
== END 2019-08-31 14:33 | disposition home or self-care (01) ==
LOC: ED 11:38
PROVIDERS: Physician Assistant
DX: M54.5 Low back pain (principal); N39.0 Urinary tract infection, site not specified; J44.9 Chronic obstructive pulmonary disease, unspecified; K21.9 Gastro-esophageal reflux disease without esophagitis; E07.9 Disorder of thyroid, unspecified; Z79.899 Other long term (current) drug therapy; Z79.82 Long term (current) use of aspirin; Z79.2 Long term (current) use of antibiotics; Z90.49 Acquired absence of other specified parts of digestive tract

== ENCOUNTER 2019-10-08 09:43 | Inpatient (IN) | payer OTHER, MEDICAID ==
[~2019-10-08] VITALS: Ht 165.1 cm; Wt 35.4 kg
[~2019-10-08 09:43] MED LIST changes: +AMINOPHYLLIN200 MG PO; +NORCO 5-325 TA1 EACH PO
[2019-10-08 09:53] VITALS: BP 131/93
[2019-10-08 10:21] LABS: BASO # 0.1 10*3/uL (0.0-0.1); BASO % 1.4 % (0.0-1.0); EOS # 0.2 10*3/uL (0.0-0.4); EOS % 2.3 % (1.0-4.0); HEMOGLOBIN 11.6 g/dl (12.0-16.0); LYMPH # 2.1 10*3/uL (1.3-4.4); LYMPH % 28.1 % (27.0-41.0); MEAN CELL VOLUME 99.2 fl (81.0-99.0); MEAN CORPUSCULAR HGB 30.3 pg (27.0-31.0); MEAN CORPUSCULAR HGB CONC 30.5 g/dl (33.0-37.0); MEAN PLATELET VOLUME 11.2 fl (9.6-12.3); MONO # 0.9 10*3/uL (0.1-1.0); MONO % 12.6 % (3.0-9.0); NEUT # 4.1 10*3/uL (2.3-7.9); NEUT % 55.3 % (47.0-73.0); PLATELET COUNT AUTOMATED 415 10*3/uL (130-400); RED BLOOD COUNT 3.83 10*6/uL (4.10-5.10); RED CELL DISTRI WIDTH 12.8 % (0-14.5); WHITE BLOOD COUNT 7.4 10*3/uL (4.8-10.8)
[2019-10-08 10:30] VITALS: BP 151/92
[2019-10-08 10:32] LABS: INTERNATIONAL NORM RATIO 1.2 (2.0-3.5)
[2019-10-08 10:57] LABS: ALBUMIN 3.3 gm/dl (3.1-4.5); ALKALINE PHOSPHATASE 130 U/L (45-117); BUN 15 mg/dl (7-24); CHLORIDE 101 mmol/L (98-107); CREATININE 0.57 mg/dL (0.55-1.02); POTASSIUM 3.5 mmol/L (3.5-5.1); SGOT/AST 21 IU/L (3-35); SGPT/ALT 22 U/L (12-78); SODIUM 136 mmol/L (136-145); TOTAL PROTEIN 7.7 gm/dL (6.4-8.2)
[2019-10-08 11:01] LABS: TROPONIN I < 0.015 ng/ml (<0.045)
[2019-10-08 12:00] VITALS: BP 148/56
[2019-10-08 12:07] VITALS: BP 140/56
--- NOTE | 2019-10-08 13:54 | NUR ---
DAUGHTER (LORHuU CELL PHONE NUMBER
--- NOTE | 2019-10-08 16:41 | NUR ---
called and spoke with pt daughter Roopa, gave pt admission room as per pt request
--- NOTE | 2019-10-08 16:57 | NUR ---
PATIENT TAKEN UPSTAIRS BY MERCEDES TORRES AT THIS TIME. PATIENT REPORT GIVEN TO JONY TORRES.
[2019-10-08] MEDS ORDERED: ANORO ELLIPTA1 EACH INH (17:10)
[2019-10-08 17:12] VITALS: BP 115/74
[2019-10-08 20:00] VITALS: BP 146/77
--- NOTE | 2019-10-08 20:18 | NUR ---
C/O BACK PAIN RATED "8" NORCO GIVEN FOR PAIN PER ORDER.
[2019-10-09] VITALS: BP 131/67
--- NOTE | 2019-10-09 01:18 | NUR ---
24 HR chart check completed.
[2019-10-09 06:36] LABS: BASO % 0.3 % (0.0-1.0); HEMATOCRIT 31.8 % (37.0-47.0); HEMOGLOBIN 9.8 g/dl (12.0-16.0); LYMPH # 0.8 10*3/uL (1.3-4.4); MEAN CELL VOLUME 96.4 fl (81.0-99.0); MEAN CORPUSCULAR HGB 29.7 pg (27.0-31.0); MEAN CORPUSCULAR HGB CONC 30.8 g/dl (33.0-37.0); MEAN PLATELET VOLUME 11.5 fl (9.6-12.3); MONO # 0.3 10*3/uL (0.1-1.0); MONO % 7.7 % (3.0-9.0); NEUT # 2.4 10*3/uL (2.3-7.9); NEUT % 68.7 % (47.0-73.0); PLATELET COUNT AUTOMATED 335 10*3/uL (130-400); RED CELL DISTRI WIDTH 12.6 % (0-14.5); WHITE BLOOD COUNT 3.5 10*3/uL (4.8-10.8)
[2019-10-09 07:02] LABS: CHLORIDE 104 mmol/L (98-107); CHOLESTEROL 97 mg/dL (<200); CREATININE 0.49 mg/dL (0.55-1.02); PHOSPHOROUS 3.5 mg/dL (2.5-4.9); POTASSIUM 3.8 mmol/L (3.5-5.1); SODIUM 137 mmol/L (136-145)
[2019-10-09 07:17] LABS: BUN 14 mg/dl (7-24); FREE T4 1.15 ng/dl (0.76-1.46); HDL CHOLESTEROL 50 mg/dl (40-60); LDL CHOLESTEROL 40 mg/dL (9-159); THYROID STIM HORMONE (HS) 0.403 uIU/ml (0.358-4.75); TRIGLYCERIDES 35 mg/dl (<150); VLDL CHOLESTEROL 7 mg/dL (6-40)
[2019-10-09 08:00] VITALS: BP 132/62
[2019-10-09 08:41] LABS: VITAMIN D, 25-HYDROXY 28.4 ng/mL (30-100)
--- NOTE | 2019-10-09 09:00 | NUR ---
Thermometer Production Worker in to talk to patient. Patient states lives at home with and daughter. There are no steps in the home. Physician: javier sheikh [facility] Home health services: none Patient's level of ADLs: INDEPENDENT Patient has working utilities: all working DME: walker Follow-up physician's appointment after d/c: will be made by hospitalist nurse director upon discharge Does patient want to access PORTAL?: no Discharge plan discussed with patient, she states she lives at home with and daughter, she is independent in ambulation with her walker, she is independent in adls, she states she will return home when medically stable discussed with her VNA and educated her on the services they provide, she declined any home services at this time. ORLIN RASMUSSEN
--- NOTE | 2019-10-09 10:05 | NUR ---
PHYSICAL THERAPY Physical Therapy evaluation completed on 4E with full evaluation to follow. Low complexity PT evaluation per chart review/ evaluation [id number]. Recommend physical therapy per plan of care and Home Health PT services upon discharge. Thank you for this referral. Danelle Gordon,PT,DPT
--- NOTE | 2019-10-09 10:05 | NUR ---
Occupational Therapy evaluation completed on four with full evaluation to follow. Recommend occupational therapy per plan of care and home with HH SN, OT, and PT upon discharge. Thank you for this referral. Sharon Wiseman OTR/L
[2019-10-09 12:00] VITALS: BP 145/80
--- NOTE | 2019-10-09 12:57 | NUR ---
pt was assessed for home oxygen. pt did not qualify pt at rest spo2 95% ra, hr 97, rr 18, b/p 133/62 pt ambulated 94-100% ra pt at rest spo2 94% ra, hr 102, rr 20,
--- NOTE | 2019-10-09 13:08 | NUR ---
PHYSICAL THERAPY Patient was resting supine in bed this pm when approached for therapy visit and reports just returning from a long walk with Respiratory Therapist. Patient stated she was comfortable in bed and wanted to take a nap, requesting for this Therapist to return tomorrow morning. Will continue per POC with all therapy goals as able. Collin Bryant, CLINICAL CYTOGENETICS DIRECTOR
[2019-10-09] MEDS ORDERED: LEVAQUIN500 M2 PO (15:36)
[2019-10-09] MEDS ORDERED: PREDNISONE10 MG PO (15:36)
--- NOTE | 2019-10-09 15:59 | NUR ---
Discharge instructions reviewed with patient. Patient receptive and verbalizes understanding. Follow-up care arranged. Written instructions given to patient. IV REMOVED, PT HAS NO QUESTIONS ON DISCHARGE. PATIENTS DAUGHTER AWARE OF DISCHARGE AND WILL CALL ONCE SHE HAS ARRIVED TO PICK PATIENT UP. KATHY BUSH
--- NOTE | 2019-10-09 17:05 | NUR ---
PT DISCHARGE VIA WHEELCHAIR
--- NOTE | 2019-10-10 07:51 | NUR ---
PHYSICAL THERAPY CO-SIGN I approve of the Physical Therapy notes written above. Larisa Villanueva PT
== END 2019-10-09 17:48 | disposition home or self-care (01) | DRG 871 ==
LOC: ED 09:43 → 4E 15:09 → EDHOLD 15:09 → 5E 16:04 → 4E 16:22
PROVIDERS: Emergency Medicine; Registered Nurse; ADMIT Family Medicine
DX: A41.9 Sepsis, unspecified organism (principal); J18.9 Pneumonia, unspecified organism; J44.1 Chronic obstructive pulmonary disease with (acute) exacerbation; E44.0 Moderate protein-calorie malnutrition; Z68.1 Body mass index [BMI] 19.9 or less, adult; I08.3 Combined rheumatic disorders of mitral, aortic and tricuspid valves; E03.9 Hypothyroidism, unspecified; K21.9 Gastro-esophageal reflux disease without esophagitis; G89.29 Other chronic pain; I25.2 Old myocardial infarction; Z79.899 Other long term (current) drug therapy; Z90.49 Acquired absence of other specified parts of digestive tract; Z98.42 Cataract extraction status, left eye; Z98.41 Cataract extraction status, right eye; Z82.49 Family history of ischemic heart disease and other diseases of the circulatory system; Z83.6 Family history of other diseases of the respiratory system; Z79.82 Long term (current) use of aspirin

== ENCOUNTER 2019-12-05 11:32 | Emergency (ER) | payer OTHER, MEDICAID ==
[~2019-12-05] VITALS: Ht 157.4 cm; Wt 40.8 kg
[~2019-12-05 11:32] MED LIST changes: +LEVAQUIN500 M2 PO
[2019-12-05 11:42] VITALS: BP 161/83
[2019-12-05 11:54] LABS: BASO # 0.1 10*3/uL (0.0-0.1); EOS # 0.1 10*3/uL (0.0-0.4); HEMATOCRIT 32.3 % (37.0-47.0); LYMPH # 1.8 10*3/uL (1.3-4.4); LYMPH % 18.7 % (27.0-41.0); MEAN CELL VOLUME 93.1 fl (81.0-99.0); MEAN CORPUSCULAR HGB 28.8 pg (27.0-31.0); MEAN PLATELET VOLUME 10.5 fl (9.6-12.3); MONO % 10.2 % (3.0-9.0); NEUT # 6.6 10*3/uL (2.3-7.9); NEUT % 68.8 % (47.0-73.0); PLATELET COUNT AUTOMATED 474 10*3/uL (130-400); RED BLOOD COUNT 3.47 10*6/uL (4.10-5.10); RED CELL DISTRI WIDTH 13.2 % (0-14.5); WHITE BLOOD COUNT 9.6 10*3/uL (4.8-10.8)
[2019-12-05 12:06] LABS: BUN 8 mg/dl (7-24); CHLORIDE 100 mmol/L (98-107); CREATININE 0.51 mg/dL (0.55-1.02); POTASSIUM 3.4 mmol/L (3.5-5.1); SODIUM 136 mmol/L (136-145)
[2019-12-05 12:11] LABS: ACT PARTIAL THROMBO TIME 27.4 SECONDS (20.0-32.1); INTERNATIONAL NORM RATIO 1.1 (2.0-3.5)
== END 2019-12-05 14:26 | disposition short-term general hospital (02) ==
LOC: ED 11:32
PROVIDERS: Emergency Medicine
DX: S72.002A Fracture of unspecified part of neck of left femur, initial encounter for closed fracture (principal); J44.9 Chronic obstructive pulmonary disease, unspecified; E03.9 Hypothyroidism, unspecified; K21.9 Gastro-esophageal reflux disease without esophagitis; Z79.899 Other long term (current) drug therapy; Z79.2 Long term (current) use of antibiotics; W19.XXXA Unspecified fall, initial encounter; Y93.89 Activity, other specified; Y92.89 Other specified places as the place of occurrence of the external cause; Y99.8 Other external cause status

== ENCOUNTER → 2020-01-23 | Outpatient (CLI) | payer OTHER, MEDICAID | END | disposition home or self-care (01) | LOC: RAD 11:03 | DX: M25.552 Pain in left hip (principal); R06.02 Shortness of breath; R07.81 Pleurodynia; Z47.1 Aftercare following joint replacement surgery; Z96.642 Presence of left artificial hip joint ==

== ENCOUNTER 2020-04-30 14:50 | Inpatient (IN) | payer OTHER, MEDICAID ==
[~2020-04-30] VITALS: Ht 165.1 cm; Wt 31.0 kg
[2020-04-30 14:55] VITALS: BP 151/65
--- NOTE | 2020-04-30 15:09 | NUR ---
PATIENTS DAUGHTER CONTACTED THE ED. THE PATIENT DID GIVE THE STAFF PERMISSION TO INFORM HER DAUGHTER OF HER CURRENT VISIT. HER DAUGHTERS NAME IS EVER AND # IS [phone]
--- NOTE | 2020-04-30 15:30 | NUR ---
PATIENT IS RESTING AT THIS TIME. NS INFUSING. CALL LIGHT IN REACH.
[2020-04-30 15:52] LABS: BASO # 0.1 10*3/uL (0.0-0.1); BASO % 0.5 % (0.0-1.0); EOS % 0.1 % (1.0-4.0); HEMATOCRIT 32.1 % (37.0-47.0); LYMPH # 0.6 10*3/uL (1.3-4.4); LYMPH % 4.6 % (27.0-41.0); MEAN CELL VOLUME 86.5 fl (81.0-99.0); MEAN CORPUSCULAR HGB CONC 31.2 g/dl (33.0-37.0); MEAN PLATELET VOLUME 10.8 fl (9.6-12.3); MONO # 1.4 10*3/uL (0.1-1.0); NEUT # 11.8 10*3/uL (2.3-7.9); NEUT % 84.4 % (47.0-73.0); PLATELET COUNT AUTOMATED 297 10*3/uL (130-400); RED BLOOD COUNT 3.71 10*6/uL (4.10-5.10); RED CELL DISTRI WIDTH 16.8 % (0-14.5)
[2020-04-30 15:53] LABS: BILIRUBIN Negative (Negative); BLOOD Negative (Negative); CLARITY Cloudy (Clear); COLOR Yellow (Yellow); GLUCOSE Negative (Negative); KETONE Negative (Negative); LEUKO ESTERASE 3+ (Negative); NITRITE Positive (Negative)
[2020-04-30 16:00] LABS: PH 8.5 (4.5-8.0)
--- NOTE | 2020-04-30 16:01 | NUR ---
PT RESTING. NO COMPLAINTS AT THIS TIME. RESP EASY AND NON LABORED. CALL LIGHT IN REACH.
[2020-04-30 16:15] LABS: BACTERIA 3+; WBC 16-20 wbc/hpf (0-5)
[2020-04-30 16:16] LABS: ALBUMIN 3.1 gm/dl (3.1-4.5); ALKALINE PHOSPHATASE 77 U/L (45-117); BUN 8 mg/dl (7-24); CHLORIDE 99 mmol/L (98-107); CREATININE 0.49 mg/dL (0.55-1.02); POTASSIUM 3.5 mmol/L (3.5-5.1); SGOT/AST 16 IU/L (3-35); SGPT/ALT 11 U/L (12-78); SODIUM 135 mmol/L (136-145); TOTAL PROTEIN 7.1 gm/dL (6.4-8.2)
[2020-04-30 16:21] LABS: INTERNATIONAL NORM RATIO 1.2 (2.0-3.5)
[2020-04-30 16:23] LABS: TROPONIN I < 0.015 ng/ml (<0.045)
--- NOTE | 2020-04-30 16:45 | NUR ---
PT RESTING WITH EYES CLOSED. RESP EASY AND NON LABORED. CALL LIGHT IN REACH.
[2020-04-30 16:52] VITALS: BP 138/68
--- NOTE | 2020-04-30 17:15 | NUR ---
CALL LIGHT IN REACH. FAMILY CONTACTED AND INFORMED OF THE PATIENT AND HER CONDITION/VISIT. RESTING IN POSITION OF COMFORT.
--- NOTE | 2020-04-30 18:10 | NUR ---
NURSE TO NURSE REPORT GIVEN TO ANGELES TORRES. CARE TRANSFERRED.
[2020-04-30 18:15] VITALS: BP 121/61
[2020-04-30 18:30] VITALS: BP 124/68
[2020-04-30] MEDS ORDERED: FEOSOL325 MG PO (19:29)
[2020-04-30] MEDS ORDERED: VITAMIN D3100 MCG PO (19:29)
[2020-04-30] MEDS ORDERED: MIRTAZAPINE7.5 MG PO (19:31)
[2020-04-30 20:00] VITALS: BP 144/64
--- NOTE | 2020-04-30 21:00 | NUR ---
MED NOTIFIED THAT PT IS REFUSING TO DRINK REDICAT FOR CT, OK TO HAVE WITHOUT ORAL CONTRAST CT NOTIFIED
[2020-05-01] VITALS: BP 145/76
--- NOTE | 2020-05-01 00:10 | NUR ---
PT ASSISTED ON BEDPAN AND REMOVED. PT VOIDED WITH NO PROBLEM. NO C/O AT THIS TIME. PT HAS NONPROD COUGH AT THIS TIME. CALL LIGHT IN REACH. SEE SHIFT ASSESSMENT.
--- NOTE | 2020-05-01 04:00 | NUR ---
PT SLEEPING IN BED. RESP-EASY AND REGULAR. OXYGEN IN USE. CALL LIGHT IN REACH.
--- NOTE | 2020-05-01 06:25 | NUR ---
PT ASSISTED TO BATHROOM WITH WALKER AND RETURNED TO BED WTIH NO PROBLEM. NO C/O AT THIS TIME. TOLERATED ROUTINE MED WITH NO PROBLEM. CALL LIGHT IN REACH.
[2020-05-01 06:52] LABS: BASO # 0.1 10*3/uL (0.0-0.1); BASO % 0.5 % (0.0-1.0); EOS # 0.1 10*3/uL (0.0-0.4); EOS % 0.4 % (1.0-4.0); HEMATOCRIT 29.6 % (37.0-47.0); LYMPH # 1.6 10*3/uL (1.3-4.4); LYMPH % 10.1 % (27.0-41.0); MEAN CELL VOLUME 87.6 fl (81.0-99.0); MEAN CORPUSCULAR HGB 26.9 pg (27.0-31.0); MEAN CORPUSCULAR HGB CONC 30.7 g/dl (33.0-37.0); MEAN PLATELET VOLUME 10.6 fl (9.6-12.3); MONO # 1.1 10*3/uL (0.1-1.0); MONO % 7.3 % (3.0-9.0); NEUT # 12.5 10*3/uL (2.3-7.9); NEUT % 81.3 % (47.0-73.0); PLATELET COUNT AUTOMATED 256 10*3/uL (130-400); RED BLOOD COUNT 3.38 10*6/uL (4.10-5.10); RED CELL DISTRI WIDTH 17.1 % (0-14.5); WHITE BLOOD COUNT 15.4 10*3/uL (4.8-10.8)
--- NOTE | 2020-05-01 07:00 | NUR ---
ARRIVED ON SHIFT, REPORT RECEIVED FROM OFFGOING NURSE, ASSUMED CARE OF PATIENT.
[2020-05-01 07:02] LABS: ACT PARTIAL THROMBO TIME 34.2 SECONDS (20.0-32.1); INTERNATIONAL NORM RATIO 1.3 (2.0-3.5)
[2020-05-01 07:19] LABS: ALBUMIN 2.7 gm/dl (3.1-4.5); ALKALINE PHOSPHATASE 69 U/L (45-117); BUN 7 mg/dl (7-24); CHLORIDE 104 mmol/L (98-107); CREATININE 0.27 mg/dL (0.55-1.02); POTASSIUM 3.4 mmol/L (3.5-5.1); SGOT/AST 11 IU/L (3-35); SGPT/ALT 11 U/L (12-78); SODIUM 136 mmol/L (136-145); TOTAL PROTEIN 6.4 gm/dL (6.4-8.2)
--- NOTE | 2020-05-01 07:50 | NUR ---
INTRDUCED SELF TO PATIENT, BED IN LOW POSITION, WHEEL LOCKS ENGAGED, SIDE RAILS UP X 2 FOR FOR TURNING AND REPOSITIONING, CALL LIGHT WITHIN REACH, NO NEEDS VOICED AT THIS TIME.
[2020-05-01 08:00] VITALS: BP 105/54
--- NOTE | 2020-05-01 09:14 | NUR ---
Print Decorator in to talk to patient. Patient states lives at home with family. There are no steps in the home. Physician: javier sheikh [facility] Home health services: none Patient's level of ADLs: assistance Patient has working utilities: all working DME: walker Follow-up physician's appointment after d/c: will be made by hospitalist nurse director upon discharge Does patient want to access PORTAL?: no Discharge plan patient lives at home with family, she uses a walker for ambulation and requires minimal assist with adls. discharge plan is for patient to return home with family. case management will follow for any other needs. ORLIN RASMUSSEN
--- NOTE | 2020-05-01 11:15 | NUR ---
CALL PLACED TO DR. SANTANA OFFICE, SPOKE WITH JOI AT ANSWERING SERVICE, ADVISED OF CONSULT.
--- NOTE | 2020-05-01 11:23 | NUR ---
CALL PLACED TO DR. NICOLE ADVISED OF CONSULT, ORDER RECEIVED FOR ABG.
[2020-05-01 12:00] VITALS: BP 119/69
[2020-05-01 12:06] LABS: ABG BASE EXCESS -0.7 mmol/L (-2.0-2.0); ARTERIAL BLOOD GAS PH 7.52 (7.35-7.45)
[2020-05-01 16:00] VITALS: BP 119/76
[2020-05-01 20:00] VITALS: BP 122/52
--- NOTE | 2020-05-01 21:27 | NUR ---
24 HR CHART CHECK COMPLETE.
[2020-05-02] VITALS: BP 153/60
--- NOTE | 2020-05-02 07:00 | NUR ---
ARRIVED ON SHIFT, REPORT RECEIVED FROM OFFGOING NURSE, ASSUMED CARE OF PATIENT.
[2020-05-02 08:00] VITALS: BP 112/68
--- NOTE | 2020-05-02 08:45 | NUR ---
NOTIFIED THAT PATIENTS COVID TEST RSULT NEGATIVE, CALL PLACED TO DR. AZIZ. ADAMS TO REMOPVE PATIENT OUT OF ISOLATION.
[2020-05-02 12:00] VITALS: BP 146/83
[2020-05-02 16:00] VITALS: BP 145/83
--- NOTE | 2020-05-02 16:41 | NUR ---
PT REQUESTED AND WAS MEDICATED WITH ZOFRAN IV FOR C/O NAUSEA. CALL LIGHT IN REACH. WILL MONITOR
--- NOTE | 2020-05-02 16:47 | NUR ---
PT REQUESTED AND WAS MEDICATED WITH NORCO FOR C/O GENERALIZED PAIN.
--- NOTE | 2020-05-02 17:35 | NUR ---
MEDICATIONS EFFECTIVE PER PT.
[2020-05-02 20:00] VITALS: BP 148/64
[2020-05-03] VITALS: BP 160/68
--- NOTE | 2020-05-03 00:26 | NUR ---
PT MEDICATED WITH PRN NORCO FOR C/O BACK PAIN RATED AN 8/10. WILL MONITOR FOR EFFECTIVENESS.
--- NOTE | 2020-05-03 01:00 | NUR ---
PT ASLEEP IN BED AT THIS TIME. NO S/S OF DISTRESS NOTED. PRN NORCO EFFECTIVE. WILL CONTINUE TO MONITOR.
[2020-05-03 06:31] LABS: BASO # 0.1 10*3/uL (0.0-0.1); EOS # 0.2 10*3/uL (0.0-0.4); EOS % 2.8 % (1.0-4.0); HEMATOCRIT 30.9 % (37.0-47.0); LYMPH % 28.7 % (27.0-41.0); MEAN CORPUSCULAR HGB 27.7 pg (27.0-31.0); MEAN CORPUSCULAR HGB CONC 31.1 g/dl (33.0-37.0); MEAN PLATELET VOLUME 10.9 fl (9.6-12.3); MONO # 0.9 10*3/uL (0.1-1.0); MONO % 13.8 % (3.0-9.0); NEUT # 3.6 10*3/uL (2.3-7.9); NEUT % 53.4 % (47.0-73.0); PLATELET COUNT AUTOMATED 297 10*3/uL (130-400); RED BLOOD COUNT 3.47 10*6/uL (4.10-5.10); RED CELL DISTRI WIDTH 17.2 % (0-14.5); WHITE BLOOD COUNT 6.8 10*3/uL (4.8-10.8)
[2020-05-03 06:46] LABS: ALBUMIN 2.6 gm/dl (3.1-4.5); ALKALINE PHOSPHATASE 63 U/L (45-117); BUN 6 mg/dl (7-24); CHLORIDE 107 mmol/L (98-107); POTASSIUM 3.8 mmol/L (3.5-5.1); SGOT/AST 13 IU/L (3-35); SGPT/ALT 11 U/L (12-78); SODIUM 139 mmol/L (136-145); TOTAL PROTEIN 6.4 gm/dL (6.4-8.2)
--- NOTE | 2020-05-03 07:51 | NUR ---
PHYSICAL THERAPY Screen and PT eval received will follow thank you Larisa Villanueva PT
[2020-05-03 08:00] VITALS: BP 150/78
--- NOTE | 2020-05-03 08:50 | NUR ---
PHYSICAL THERAPY Physical Therapy evaluation completed on 4th floor with full evaluation to follow. Recommend physical therapy per plan of care and home w family and home health services upon discharge. Thank you for this referral. Valeriano Vergara SPT Larisa Villanueva PT
--- NOTE | 2020-05-03 09:00 | NUR ---
case management visits with patient, again discussed with a short term detention with 5 days of rehab and 24 hour care prior to returning home. she declined stated she will have her and daughter at home with her. discussed with her needing iv antibiotics for 7 more days and if anyone at home would be able to do them. she stated her daughter could do them. also discussed VNA and she stated she has used [facility] in the past and would like their services again. case management will send referral to [facility] for when patient is medically stable for discharge
--- NOTE | 2020-05-03 09:00 | NUR ---
Occupational Therapy evaluation completed on 4 with full eval to follow. Precautions include severe BURNS PAIUTE, fall risk,ww use,muscle weakness, low complexity level 68465. Recommend OT per pOC and home with family support and home health SN, OT,PT. Patient in agreement with this plan. Thank you for this referral. Ana Schaeffer OTR/L
[2020-05-03 12:00] VITALS: BP 136/74
--- NOTE | 2020-05-03 13:00 | NUR ---
case management received a call from patient's daughter Nkechi Cisneros. she asked for a review of patient's discharge plans. educated her that patient will be discharged to home on 7 more days of iv antibiotics and patient chose to return home and have her daughter do this. also educated daughter patient chose [facility] to follow. daughter asked that patient not be discharged until daughter talked with rest of family regarding home antibiotics, Nkechi stated she did not know if it would be possibly for family to administer these antibiotcs. case management will await a return call from daughter
--- NOTE | 2020-05-03 14:15 | NUR ---
Patient assessed for home O2. At rest on 2 l/m Spo2 100% HR 84, after 20 minutes on room air at rest Spo2 94%. Patient ambulated in the room with assistance from PT Spo2 remained >90%, HR increased to 120. Patient did complain of dyspnea but recovered quickly upon sitting down. patient left on room air. RN notified patient did not qualify and patient was left on room air.
--- NOTE | 2020-05-03 15:12 | NUR ---
SPEECH PATHOLOGY Nursing screen completed. Patient admitted with pneumonitis, sepsis, COPD exacerbation. This dept. will be available for consult if needed. SUNNY BETANCUR MSCCC-COMMISSARY OFFICER
--- NOTE | 2020-05-03 15:52 | NUR ---
HR UP TO 120'S WITH ACTIVITY, NO C/O CHEST PAIN, FREQUENT PVC'S NOTED. HR CURRENTLY SINUS TACHY RHYTHM/PAC'S RATE 100'S WITH REST. SLIGHT DYSPNEA REMAINING AFTER ACTIVITY.
[2020-05-03 16:00] VITALS: BP 149/67
--- NOTE | 2020-05-03 17:34 | NUR ---
PATIENT OBTAINING MIDLINE FROM OR NURSE AT BEDSIDE.
--- NOTE | 2020-05-03 17:59 | NUR ---
OR NURSE IN ROOM STILL ATTEMPTING MIDLINE INSERTION.
--- NOTE | 2020-05-03 18:11 | NUR ---
OR NURSE SUCCESSFULLY PLACED MIDLINE TO RIGHT ARM.
--- NOTE | 2020-05-03 18:16 | NUR ---
MEDICATED WITH PRN IV ZOFRAN FOR NAUSEA ASSOCIATED WITH MIDLINE PLACEMENT.
--- NOTE | 2020-05-03 19:17 | NUR ---
PRN IV ZOFRAN EFFECTIVE, PER PATIENT.
[2020-05-03 20:00] VITALS: BP 155/82
[2020-05-04] VITALS: BP 171/96
--- NOTE | 2020-05-04 00:06 | NUR ---
PT MEDICATED WITH PRN NORCO FOR C/O BACK PAIN RATED A 6/10. WILL MONITOR FOR EFFECTIVENESS.
--- NOTE | 2020-05-04 01:00 | NUR ---
PT ASLEEP AT THIS TIME. NO S/S OF DISTRESS NOTED. PRN NORCO APPEARS EFFECTIVE.
[2020-05-04] MEDS ORDERED: ERTAPENEM1 GM IV (07:22)
[2020-05-04 08:00] VITALS: BP 156/79
--- NOTE | 2020-05-04 09:00 | NUR ---
case management attempted to visit with patient, she was sleeping. contacted patient's daughter Roopa who lives with patient and her . discussed with her patient needing iv antibiotics for 10 days and if she would be able to learn how to administer them or would she like patient to go to a short term long-term for rehab and iv antibiotics. Roopa stated she would like patient to return home and she would be able to administer the iv antibiotics. she stated she had administered them to her mom once before and she also has a daughter who is a nurse who can help. educated her that OV was set up and would visit her tomorrow. also educated her [facility] an [employer] is checking on the cost of the medication. educated Roopa case management will contact her when all of treatment is set up
--- NOTE | 2020-05-04 09:30 | NUR ---
case management contacte [facility] and spoke to [place], patient's information and script for iv antibiotic faxed to [facility]. she will check patient's benefits and contact case management if patient has any co pay for medication
--- NOTE | 2020-05-04 11:00 | NUR ---
PHYSICAL THERAPY Patient was resting comfortably supine in bed when approached for therapy this morning by OT life enrichment assistant and myself. Patient stated she is going home this afternoon per her discussion with Physician and declined all treatment this date. Patient remained in bed and no services provided at this time. Collin Bryant, VALUE ANALYST
[2020-05-04 12:00] VITALS: BP 150/88
--- NOTE | 2020-05-04 13:06 | NUR ---
case management received a call from Gely at [employer]. patient will have no more that $3.60 copay for her home iv antibiotics. [facility] [employer] will deliver the iv antibiotics today for start of care tomorrow.
[2020-05-04] MEDS ORDERED: NORCO 5-325 TA1 EACH PO (13:42)
--- NOTE | 2020-05-04 15:26 | NUR ---
Discharge instructions reviewed with patient/family. Patient receptive and verbalizes understanding. Follow-up care arranged. Written instructions given to patient/family. CASSIA CABAN
--- NOTE | 2020-05-05 07:37 | NUR ---
PHYSICAL THERAPY CO-SIGN I approve of the Physical Therapy notes written above. Larisa Villanueva PT
== END 2020-05-04 16:48 | disposition home or self-care (01) | DRG 871 ==
LOC: ED 14:50 → EDHOLD 17:15 → 4E 17:15
PROVIDERS: Internal Medicine Critical Care Medicine; Physician Assistant; Podiatrist; Student in an Organized Health Care Education/Training Program; ADMIT Emergency Medicine; ATTEND Emergency Medicine
PROC: 05HD33Z Insertion of Infusion Device into Right Cephalic Vein, Percutaneous Approach (ICD-10-PCS; principal; 2020-05-03)
DX: A41.9 Sepsis, unspecified organism (principal); J18.9 Pneumonia, unspecified organism; J44.1 Chronic obstructive pulmonary disease with (acute) exacerbation; N39.0 Urinary tract infection, site not specified; E87.1 Hypo-osmolality and hyponatremia; Z68.1 Body mass index [BMI] 19.9 or less, adult; I50.32 Chronic diastolic (congestive) heart failure; K21.9 Gastro-esophageal reflux disease without esophagitis; R63.6 Underweight; R26.81 Unsteadiness on feet; E03.9 Hypothyroidism, unspecified; D64.9 Anemia, unspecified; Z20.828 Contact with and (suspected) exposure to other viral communicable diseases; B96.89 Other specified bacterial agents as the cause of diseases classified elsewhere; I35.0 Nonrheumatic aortic (valve) stenosis; E87.6 Hypokalemia; I11.0 Hypertensive heart disease with heart failure; Z88.5 Allergy status to narcotic agent; Z98.41 Cataract extraction status, right eye; Z98.42 Cataract extraction status, left eye; Z90.49 Acquired absence of other specified parts of digestive tract; Z90.10 Acquired absence of unspecified breast and nipple; Z82.49 Family history of ischemic heart disease and other diseases of the circulatory system; Z84.89 Family history of other specified conditions; Z83.6 Family history of other diseases of the respiratory system; I25.2 Old myocardial infarction; Z87.440 Personal history of urinary (tract) infections; Z79.82 Long term (current) use of aspirin; Z79.899 Other long term (current) drug therapy

== ENCOUNTER 2020-05-18 11:12 | Emergency (ER) | payer OTHER, MEDICAID ==
[~2020-05-18] VITALS: Ht 165.1 cm; Wt 35.4 kg
[~2020-05-18 11:12] MED LIST changes: +ERTAPENEM1 GM IV; +FEOSOL325 MG PO; +MIRTAZAPINE7.5 MG PO; +VITAMIN D3100 MCG PO
[2020-05-18 11:13] VITALS: BP 160/85
[2020-05-18 11:45] LABS: BASO # 0.1 10*3/uL (0.0-0.1); BASO % 0.9 % (0.0-1.0); EOS # 0.1 10*3/uL (0.0-0.4); EOS % 0.7 % (1.0-4.0); HEMATOCRIT 33.4 % (37.0-47.0); LYMPH # 1.5 10*3/uL (1.3-4.4); LYMPH % 15.5 % (27.0-41.0); MEAN CELL VOLUME 90.8 fl (81.0-99.0); MEAN CORPUSCULAR HGB 27.7 pg (27.0-31.0); MEAN CORPUSCULAR HGB CONC 30.5 g/dl (33.0-37.0); MONO # 1.4 10*3/uL (0.1-1.0); MONO % 13.6 % (3.0-9.0); NEUT # 6.8 10*3/uL (2.3-7.9); NEUT % 69.1 % (47.0-73.0); PLATELET COUNT AUTOMATED 312 10*3/uL (130-400); RED BLOOD COUNT 3.68 10*6/uL (4.10-5.10); RED CELL DISTRI WIDTH 15.8 % (0-14.5); WHITE BLOOD COUNT 9.9 10*3/uL (4.8-10.8)
[2020-05-18 11:45] LABS: BILIRUBIN Negative (Negative); BLOOD Negative (Negative); CLARITY Cloudy (Clear); COLOR Yellow (Yellow); GLUCOSE Negative (Negative); KETONE Negative (Negative); LEUKO ESTERASE Negative (Negative); NITRITE Negative (Negative); PH 7.5 (4.5-8.0); SPECIFIC GRAVITY 1.015 (1.001-1.030)
[2020-05-18 11:54] LABS: INTERNATIONAL NORM RATIO 1.2 (2.0-3.5)
[2020-05-18 12:02] LABS: ALKALINE PHOSPHATASE 95 U/L (45-117); BUN 9 mg/dl (7-24); CHLORIDE 100 mmol/L (98-107); CREATININE 0.48 mg/dL (0.55-1.02); POTASSIUM 3.5 mmol/L (3.5-5.1); SGOT/AST 13 IU/L (3-35); SGPT/ALT 14 U/L (12-78); SODIUM 137 mmol/L (136-145); TOTAL PROTEIN 7.4 gm/dL (6.4-8.2)
[2020-05-18 12:23] LABS: BACTERIA 1+
== END 2020-05-18 13:07 | disposition home or self-care (01) ==
LOC: ED 11:12
PROVIDERS: Nurse Practitioner Family
DX: R51.9 Headache, unspecified (principal); R41.0 Disorientation, unspecified; K21.9 Gastro-esophageal reflux disease without esophagitis; J44.9 Chronic obstructive pulmonary disease, unspecified; E07.9 Disorder of thyroid, unspecified; Z88.5 Allergy status to narcotic agent; Z79.82 Long term (current) use of aspirin; Z79.899 Other long term (current) drug therapy; Z90.49 Acquired absence of other specified parts of digestive tract; W19.XXXA Unspecified fall, initial encounter; Y93.89 Activity, other specified; Y92.128 Other place in nursing home as the place of occurrence of the external cause; Y99.8 Other external cause status

== ENCOUNTER → 2021-03-21 | Outpatient (CLI) | payer OTHER, MEDICAID | END | disposition home or self-care (01) | LOC: RAD 14:03 | PROVIDERS: ATTEND Nurse Practitioner Primary Care | DX: R06.02 Shortness of breath (principal); I70.0 Atherosclerosis of aorta; M85.80 Other specified disorders of bone density and structure, unspecified site ==

== ENCOUNTER 2021-07-03 23:58 | Emergency (ER) | payer OTHER, MEDICAID ==
[2021-07-04 00:50] LABS: BASO # 0.1 10*3/uL (0.0-0.1); BASO % 0.9 % (0.0-1.0); EOS # 0.1 10*3/uL (0.0-0.4); EOS % 0.9 % (1.0-4.0); HEMATOCRIT 34.9 % (37.0-47.0); LYMPH # 1.2 10*3/uL (1.3-4.4); LYMPH % 9.1 % (27.0-41.0); MEAN CELL VOLUME 93.6 fl (81.0-99.0); MEAN CORPUSCULAR HGB 30.3 pg (27.0-31.0); MEAN CORPUSCULAR HGB CONC 32.4 g/dl (33.0-37.0); MEAN PLATELET VOLUME 11.1 fl (9.6-12.3); MONO % 7.6 % (3.0-9.0); NEUT # 10.4 10*3/uL (2.3-7.9); NEUT % 81.2 % (47.0-73.0); PLATELET COUNT AUTOMATED 305 10*3/uL (130-400); RED BLOOD COUNT 3.73 10*6/uL (4.10-5.10); RED CELL DISTRI WIDTH 13.2 % (0-14.5); WHITE BLOOD COUNT 12.8 10*3/uL (4.8-10.8)
[2021-07-04 01:08] LABS: ALBUMIN 2.7 gm/dl (3.1-4.5); ALKALINE PHOSPHATASE 80 U/L (45-117); CHLORIDE 99 mmol/L (98-107); CREATININE 0.43 mg/dL (0.55-1.02); POTASSIUM 3.5 mmol/L (3.5-5.1); SODIUM 134 mmol/L (136-145); TOTAL PROTEIN 7.8 gm/dL (6.4-8.2)
[2021-07-04 01:21] LABS: BUN 7 mg/dl (7-24); SGOT/AST 14 IU/L (3-35); SGPT/ALT 12 U/L (12-78)
[2021-07-04 02:58] VITALS: BP 161/91
== END 2021-07-04 03:52 | disposition home or self-care (01) ==
LOC: ED 23:58
PROVIDERS: Emergency Medicine
DX: J06.9 Acute upper respiratory infection, unspecified (principal); Z20.822 Contact with and (suspected) exposure to COVID-19